=== PATIENT | male | born 1985 | race American Indian/Alaskan Native ===

== ENCOUNTER 2016-05-12 20:32 | Emergency (ER) | payer SELFPAY ==
[2016-05-12 20:40] VITALS: BP 157/106
--- NOTE | 2016-05-12 20:41 | Emergency Department Report ---
Chief Complaint: High BP Stated Complaint: ELEVATED BLOOD PRESSURE, HEADACHE Time Seen by Provider: 05/12/16 20:38 - HPI History of Present Illness: pt states he went to the grocery store [employer] to check his bp and it was elevated. PT denies hx of htn but states his mother has htn - ROS Review of Systems: - cp - sob + headaches + irritated eyes - Exam Physical Exam: PT is alert eyes injected conrado no acute resp distress gcs 15 MSE screening note: Focused history and physical exam performed. Due to findings the following was ordered: labs, ekg ED Disposition for MSE Condition: Stable
[2016-05-12 21:28] LABS: Hematocrit 43.3 % (35.5-45.6); Hemoglobin 14.1 gm/dl (11.8-15.2); Mean Corpuscular HGB Conc 33 % (32-34); Mean Corpuscular Hemoglobin 30 pg (28-32); Mean Corpuscular Volume 91 fl (84-94); Platelet Count 328 K/mm3 (140-440); Red Blood Count 4.78 M/mm3 (3.65-5.03); Red Cell Distribution Width 13.9 % (13.2-15.2); White Blood Count 9.8 K/mm3 (4.5-11.0)
[2016-05-12 21:40] LABS: Anion Gap 18 mmol/L; Blood Urea Nitrogen 11 mg/dL (9-20); Calcium 9.9 mg/dL (8.4-10.2); Carbon Dioxide 26 mmol/L (22-30); Chloride 101.2 mmol/L (98-107); Glucose 82 mg/dL (75-100); Potassium 4.1 mmol/L (3.6-5.0); Sodium 141 mmol/L (137-145)
--- NOTE | 2016-05-15 01:13 | ED Elopement Review ---
ED Pt Elopement review - Results review Lab results: Laboratory Tests 05/12/16 05/12/16 21:07 21:07 WBC 9.8 RBC 4.78 Hgb 14.1 Hct 43.3 MCV 91 MCH 30 MCHC 33 RDW 13.9 Plt Count 328 Sodium 141 Potassium 4.1 Chloride 101.2 Carbon Dioxide 26 Anion Gap 18 BUN 11 Creatinine 1.1 Estimated GFR > 60 BUN/Creatinine Ratio 10.00 Glucose 82 Calcium 9.9 Troponin T < 0.010 - Call Back decision Pt Call Back Decision: No action required
== END 2016-05-12 20:45 | disposition left against medical advice (07) ==
LOC: ED 20:32
DX: R03.0 Elevated blood-pressure reading, without diagnosis of hypertension (principal); Z53.21 Procedure and treatment not carried out due to patient leaving prior to being seen by health care provider
CPT/HCPCS: 36415; 80048; 84484; 85027; 93005; 93010